=== PATIENT | female | born 1990 | race Caucasian/White ===

== ENCOUNTER 2018-05-02 17:48 | Outpatient (CLI) | payer MEDICAID ==
[2018-05-02] MEDS ORDERED: RINGERS SOLUTION,LACTATED 1,000 ML IV ONE (18:30)
[2018-05-02 18:40] LABS: ABSOLUTE EOSINOPHILS # (AUTO) 0.1 10^3/uL (0.0-0.6); ABSOLUTE LYMPHOCYTES (AUTO) 2.1 10^3/uL (0.5-4.7); ABSOLUTE MONOCYTES (AUTO) 0.7 10^3/uL (0.1-1.4); ABSOLUTE NEUT (AUTO) 9.9 10^3/uL (1.7-8.2); BASOPHILS % (AUTO) 0.2 % (0-2); EOSINOPHILS % (AUTO) 0.5 % (0-6); HEMOGLOBIN 11.7 g/dL (12.0-15.5); LYMPHOCYTES % (AUTO) 16.3 % (13-45); MEAN CORPUSCULAR HEMOGLOBIN 31.2 pg (27.0-33.4); MEAN CORPUSCULAR HGB CONC 34.5 g/dL (32.0-36.0); MEAN CORPUSCULAR VOLUME 90 fl (80-97); MONOCYTES % (AUTO) 5.5 % (3-13); PLATELET COUNT 191 10^3/uL (150-450); RED BLOOD COUNT 3.77 10^6/uL (3.72-5.28); RED CELL DISTRIBUTION WIDTH 13.1 % (11.5-14.0); SEGMENTED NEUTROPHILS % (AUTO) 77.5 % (42-78); TOTAL CELLS COUNTED % (AUTO) 100 %; WHITE BLOOD COUNT 12.7 10^3/uL (4.0-10.5)
[2018-05-02 19:34] LABS: RUBELLA INTERPRETATION POSITIVE
--- NOTE | 2018-05-02 20:42 | RADIOLOGY REPORT (SQ) ---
EXAM DESCRIPTION: U/S OB 14+ TRNABD 1GES W/O DOP COMPLETED DATE/TIME: 05/02/2018 8:08 pm REASON FOR STUDY: no care, complete OB US, anatomy COMPARISON: None. TECHNIQUE: Static and Dynamic grayscale imaging performed of gravid uterus using transabdominal appr oach. Additional selected color Doppler and spectral images recorded. Transvaginal images of cervic al length were obtained. All stored on PACS. LIMITATIONS: positioning and advanced age FINDINGS: EGA: 32 weeks 3 days BURKE: 06/24/2018 EFW: 1,973 grams PERCENTILE: Not calculated DANIELLA: 11.6 PLACENTA: Anterior. PRESENTATION: Cephalic. ANATOMY: HEART RATE: 137 beats per minute. FOUR CHAMBER HEART: Visualized. THREE VESSEL CORD: Yes. CORD INSERTION: Visualized. KIDNEYS AND BLADDER: Not visualized STOMACH: Visualized. Appears normal. SPINE: Not adequately visualized BRAIN AND LATERAL VENTRICLES: Not adequately visualized OTHER: No other significant finding. MATERNAL ADNEXA: Maternal ovaries not visualized. CERVICAL LENGTH: 3.5 cm Closed. OTHER: No other significant finding. IMPRESSION: LIVING INTRAUTERINE . ESTIMATED GESTATIONAL AGE 32 weeks 3 days which is discordant with patient's EGA by LMP of 20 weeks 2 days. Clinical correlation is required. Limited anatomic evaluation with no gross abnormality is visualized. Trimester of : Third trimester - 28 weeks to delivery. TECHNICAL DOCUMENTATION: JOB ID: [id number] [employer]- All Rights Reserved Reading location - IP/workstation name: [email or web address]
[2018-05-02 20:52] LABS: APPEARANCE,URINE SLIGHTLY-CLOUDY; BILIRUBIN,URINE NEGATIVE (NEGATIVE); COLOR,URINE COLORLESS; GLUCOSE, URINE NEGATIVE (NEGATIVE); KETONES,URINE NEGATIVE (NEGATIVE); LEUKOCYTE ESTERASE,URINE NEGATIVE (NEGATIVE); NITRITE,URINE NEGATIVE (NEGATIVE); PROTEIN,URINE NEGATIVE (NEGATIVE); URINE SPECIFIC GRAVITY 1.003; UROBILINOGEN,URINE NEGATIVE mg/dL (<2.0)
[2018-05-02 21:07] LABS: URINE AMPHETAMINES SCREEN NEGATIVE; URINE BARBITURATES SCREEN NEGATIVE; URINE BENZODIAZEPINES SCREEN NEGATIVE; URINE COCAINE SCREEN NEGATIVE; URINE METHADONE SCREEN NEGATIVE; URINE PHENCYCLIDINE SCREEN NEGATIVE
[2018-05-02 21:10] LABS: URINE MARIJUANA (THC) SCREEN UNCONFIRMED POSITIVE
--- NOTE | 2018-05-02 21:56 | Non Stress Test Report ---
Non Stress Test Datetime Report Generated by CPN: 05/02/2018 21:56 DEMOGRAPHIC Test Number: 1 EGA NST: 32.3 INDICATION Indication for Study: Ordered by Provider MONITORING Monitor Explained: Monitor Explained; Test Explained; Patient Verbalized Understanding Time on Monitor: 05/02/2018 20:12 Time off Monitor: 05/02/2018 21:02 NST Duration: 50 NST INTERVENTIONS NST Interventions: PO Hydration; IV Fluids; Reposition Patient Physician Notified NST: Dr. Pruitt BABY A: [id number] BABY A Movement : Present Contraction Frequency : occasional FHR Baseline : 135 Accelerations : 15X15 Decelerations : None Variability : Moderate 6-25bpm NST Review: Meets Criteria for Reactive NST NST Review and Verified By : HEDY Berman NST REPORT Report Trigger: Send Report
[2018-05-02 23:07] LABS: CHLAM PCR NOT DETECTED (NOT DETECT); GON PCR NOT DETECTED (NOT DETECT)
[2018-05-04 09:40] LABS: HEPATITIS C VIRUS AB <0.1 s/co ratio (0.0-0.9)
[2018-05-04 10:16] LABS: HEPATITS B SURFACE ANTIGEN Negative (Negative)
== END 2018-05-02 21:49 | disposition home or self-care (01) ==
LOC: LC 17:48
PROVIDERS: ATTEND Obstetrics & Gynecology Gynecology
PROC: 4A1HXCZ Monitoring of Products of Conception, Cardiac Rate, External Approach (ICD-10-PCS; principal; 2018-05-02)
DX: O47.03 False labor before 37 completed weeks of gestation, third trimester (principal); O09.33 Supervision of pregnancy with insufficient antenatal care, third trimester; Z3A.32 32 weeks gestation of pregnancy
CPT/HCPCS: 59025; 86900; 86901; 36415; 86850; 85025; 86762; 86592; 81001; 87081; 87340; 86701; 80307; 87491; 87591; 86803; 86804; 76805; G0480 ×2; 80349

== ENCOUNTER 2018-06-17 16:09 | Inpatient (IN) | payer MEDICAID ==
[~2018-06-17 16:09] MED LIST: DEXAMETHASONE SOD PHOSPHATE INJ 4 MG/1 ML VIAL ONE; METOCLOPRAMIDE HCL INJ/PF 10 MG/2 ML SDV ONE; ONDANSETRON HCL INJ/PF 4 MG/2 ML SDV ONE; PHENYLEPHRINE HCL INJ/PF 10 MG/1 ML SDV ONE
[2018-06-17] MEDS ORDERED: CEFAZOLIN 2 GM/D5W RTU 2 GM/50 ML RTUPB IV ONE ×2 (17:00→17:08)
[2018-06-17] MEDS ORDERED: RINGERS SOLUTION,LACTATED 1,000 ML IV PRN (17:00)
[2018-06-17 17:07] LABS: APPEARANCE,URINE CLEAR; BILIRUBIN,URINE NEGATIVE (NEGATIVE); COLOR,URINE AMBER; GLUCOSE, URINE NEGATIVE (NEGATIVE); KETONES,URINE NEGATIVE (NEGATIVE); LEUKOCYTE ESTERASE,URINE TRACE (NEGATIVE); NITRITE,URINE NEGATIVE (NEGATIVE); PROTEIN,URINE 30 mg/dL (NEGATIVE); URINE SPECIFIC GRAVITY 1.021
[2018-06-17] MEDS ORDERED: CITRIC ACID/SODIUM CITRATE ORAL SOLN 15 ML UDCUP ONE (17:07)
[2018-06-17 17:38] LABS: URINE AMPHETAMINES SCREEN NEGATIVE; URINE BARBITURATES SCREEN NEGATIVE; URINE BENZODIAZEPINES SCREEN NEGATIVE; URINE COCAINE SCREEN NEGATIVE; URINE METHADONE SCREEN NEGATIVE; URINE PHENCYCLIDINE SCREEN NEGATIVE
[2018-06-17 17:46] LABS: URINE MARIJUANA (THC) SCREEN UNCONFIRMED POSITIVE
--- NOTE | 2018-06-17 18:28 | Admission Physical ---
Datetime Report Generated by CPN: 06/17/2018 18:27 CURRENT ADMISSION Chief Complaint: Uterine Contractions; Suspected Ruptured Membranes Indication for Induction: Not Applicable Admit Impression : Term, Intrauterine ; Ruptured Membranes; Repeat Section Admit Impression- Other: meconium noted Admit Plan: Admit to Unit; Initiate Section Protocol ALLERGIES Medication Allergies: No Medication Allergies: No Known Drug Allergies (06/15/2018) Latex: No Latex Allergies OBSTETRICAL HISTORY EDC: 06/24/2018 00:00 : 4 Para: 2 Term: 2 : 0 SAB: 1 IAB: 0 Ectopic: 0 Livin Cesareans: 2 VBACs: 0 Multiple Births: 0 SEE RECORDS Alcohol: No Marijuana : Yes Marijuana Comments: pt states that she used it once Cocaine: No Other Illicit Drugs: No Cigarettes: Former Smoker. [id number] MEDICAL HISTORY Hosp/Surgery: Yes Medical History Comments: x2 gall bladder removal Left arm surgery PHYSICAL EXAM General: Normal HEENT: Normal Neurologic: Normal Thyroid: Normal Heart: Normal Lungs: Normal Breast: Normal Back: Normal Abdomen: Normal Genitourinary Exam: Normal Extremities: Normal DTRs: Normal Pelvic Type: Adequate Vital Signs: Reviewed; Within Normal Limits MEMBRANES Pooling: Positive Membranes: Ruptured Amniotic Fluid Color: Meconium, Light FETUS A EGA: 39.0 Monitoring: External US FHR- Baseline: 140 Variability: Minimal - Undetectable to <=5bpm Decelerations: Variable; Prolonged FHR Category: Category II Estimated Weight (gm): 3500 Presentation: Vertex Admit Comment: proceed with repeat c/section in light of questionable status on nst and evidence of ROM. PLANS FOR LABOR AND DELIVERY Feeding Preference: Breast Benefit of Breast Feed Discussed: Yes Circumcision: N/A INFORMED CONSENT Signature: with User ID: [email or web address]
[2018-06-17] MEDS ORDERED: DIPHENHYDRAMINE HCL 50 MG/ML VIAL IV PRN (18:55)
[2018-06-17] MEDS ORDERED: PROMETHAZINE HCL INJ 25 MG/1 ML VIAL IV PRN ×3 (18:55→21:10)
[2018-06-17] MEDS ORDERED: FENTANYL CITRATE INJ/PF 100 MCG/2 ML AMPUL IV PRN ×3 (18:55)
[2018-06-17] MEDS ORDERED: MEPERIDINE HCL/PF INJ 25 MG/1 ML DISP.SYRIN IV PRN (18:55)
[2018-06-17] MEDS ORDERED: ONDANSETRON HCL INJ/PF 4 MG/2 ML SDV IV PRN (18:55)
[2018-06-17] MEDS ORDERED: MORPHINE SULFATE 10 MG/ML INJ IV PRN (18:55)
[2018-06-17] MEDS ORDERED: ACETAMINOPHEN 1,000 MG/100 ML RTUPB IV ONE (19:27)
[2018-06-17] MEDS ORDERED: FENTANYL CITRATE INJ/PF 100 MCG/2 ML AMPUL ONE (19:44)
[2018-06-17] MEDS ORDERED: MORPHINE SULFATE 10 MG/ML INJ ONE (20:51)
[2018-06-17] MEDS ORDERED: ACETAMINOPHEN 325 MG TABLET PO PRN (21:10)
[2018-06-17] MEDS ORDERED: OXYTOCIN/NORMAL SALINE 20 UNIT/1,000 ML RTUINJ IV PRN (21:10)
[2018-06-17] MEDS ORDERED: DIPH/PERTUSS(ACELL)/TETANUS VAC/PF 0.5 ML SYR (>=10YO) IM PRN (21:10)
[2018-06-17] MEDS ORDERED: HYDROMORPHONE HCL INJ/PF 2 MG/ML AMPULE IV PRN (21:10)
[2018-06-17] MEDS ORDERED: SIMETHICONE 80 MG TAB.CHEW PO PRN (21:10)
[2018-06-17] MEDS ORDERED: MEASLES,MUMPS&RUBELLA VACC/PF 0.5 ML VIAL SUBCUT PRN (21:10)
[2018-06-17] MEDS ORDERED: OXYCODONE-ACETAMINOPHEN 5-325 MG TABLET PO PRN (21:10)
[2018-06-17] MEDS ORDERED: HYDROMORPHONE HCL INJ/PF 2 MG/ML AMPULE ONE (21:33)
--- NOTE | 2018-06-17 22:30 | OPERATIVE REPORT E ---
Operative Report NAME: JOHANN BREWER : 1990 AGE: 28Y DATE OF SURGERY: ROOM: LR200 PREOPERATIVE DIAGNOSES: 1. Intrauterine at 39 weeks and 0 days. 2. Previous section. 3. Undesired fertility. POSTOPERATIVE DIAGNOSES: 4. Intrauterine at 39 weeks and 0 days. 5. Previous section. 6. Undesired fertility. PROCEDURE: Low transverse hysterotomy section with [place] tubal ligation. SURGEON: TRACI FUENTES M.D. LENS CUTTER: Porsha*------*, student. ANESTHESIA: Jenny Silva M.D. with a spinal. FINDINGS: A female , cephalic presentation with scores of 9 and 9, with meconium. The infant was quite meconium stained in fact and it 2230 grams. A thin lower uterine segment window. COMPLICATIONS: None. ESTIMATED BLOOD LOSS: 700 mL. TISSUE REMOVED OR ALTERED: Bilateral fallopian tubes. PROCEDURE IN DETAIL: The patient was taken to the operating room, prepared and draped in a normal sterile fashion in the supine position with a leftward tilt. A transverse skin incision was made with a scalpel following the patient's previous scar. This was carried through to the underlying layer of fascia with a Bovie. The fascia was excised and extended laterally with the Bovie as well. The fascia was then dissected from the rectus muscles sharply with the Bovie and the rectus muscle was divided with good visualization of the bladder and the uterus, and the above findings were noted in regards to the uterine window. The bladder blade was inserted. The hysterotomy was nicked above the patient's previous hysterotomy scar with a scalpel and this was extended with surgeon finger fracture. The infant was then delivered atraumatically. The nose and mouth were suctioned with a suction bulb and the cord was clamped and cut, and the was handed off to awaiting software systems engineer. The cord blood was collected. The placenta was removed manually. The uterus was exteriorized and cleared of clots and debris. We examined the lower uterine segment itself, that at this time if we could obtain hemostasis with a 1 layer closure we would only to a 1 layer closure due to the thinness of the uterine segment and the concerns over bladder involvement. Therefore, the hysterotomy was closed with a single layer of Monocryl in a running lock stitch. Attention was then turned to the fallopian tubes, where both fallopian tubes were grasped with Babcocks and the mesosalpinx was divided. A large segment of each fallopian tube was tied off with 2 pieces of 2-0 chromic and the intermediate segment was then removed with Metzenbaums. The pedicles were made hemostatic with a Bovie. The hysterotomy was reinspected and again found to be hemostatic. The uterus was returned to the abdomen. The peritoneal cavity was cleared of clots and debris. The rectus muscle and peritoneum were reapproximated with a mattress stitch of 2-0 chromic. The fascia was closed with 0 Vicryl. The subcutaneous layer was closed with plain catgut. The skin was closed with 4-0 Vicryl. The patient tolerated the procedure well. Sponge, lap, and needle counts were correct x2, and the patient was taken to recovery in stable condition. DICTATING PHYSICIAN: TRACI FUENTES M.D. [id number] PHY#: [id number] ID: [id number] JOB#: [id number] ACCT: [id number] cc:TRACI FUENTES M.D. >
[2018-06-18] MEDS ORDERED: CEFAZOLIN 1 GM/D5W RTU 1 GM/50 ML RTUPB IV SCH
[2018-06-18] MEDS ORDERED: HYDROMORPHONE HCL INJ/PF 2 MG/ML AMPULE ONE (00:10)
[2018-06-18] MEDS: KETOROLAC TROMETHAMINE INJ/PF 30 MG/1 ML SDV IV SCH ×3 (00:24→14:45)
[2018-06-18] MEDS ORDERED: OXYCODONE-ACETAMINOPHEN 5-325 MG TABLET ONE ×2 (04:56→04:58)
[2018-06-18] MEDS ORDERED: KETOROLAC TROMETHAMINE INJ/PF 30 MG/1 ML SDV ONE (04:56)
[2018-06-18] MEDS: OXYCODONE-ACETAMINOPHEN 5-325 MG TABLET PO PRN ×3 (05:43→20:41)
[2018-06-18 06:23] LABS: HEMATOCRIT 33.2 % (36.0-47.0); HEMOGLOBIN 11.3 g/dL (12.0-15.5); MEAN CORPUSCULAR HEMOGLOBIN 30.9 pg (27.0-33.4); MEAN CORPUSCULAR VOLUME 91 fl (80-97); PLATELET COUNT 243 10^3/uL (150-450); RED BLOOD COUNT 3.66 10^6/uL (3.72-5.28); RED CELL DISTRIBUTION WIDTH 13.3 % (11.5-14.0); WHITE BLOOD COUNT 26.5 10^3/uL (4.0-10.5)
[2018-06-18] MEDS: IBUPROFEN 800 MG TABLET PO SCH ×4 (11:27→18:16)
[2018-06-18] MEDS: DOCUSATE SODIUM 100 MG CAPSULE PO SCH ×2 (11:32→18:16)
[2018-06-18] MEDS: PRENATAL VITAMIN W DHA CAPSULE PO SCH (11:34)
[2018-06-19] MEDS: IBUPROFEN 800 MG TABLET PO SCH ×3 (00:47→12:43)
[2018-06-19] MEDS: OXYCODONE-ACETAMINOPHEN 5-325 MG TABLET PO PRN ×2 (05:59→12:43)
[2018-06-19] MEDS: DOCUSATE SODIUM 100 MG CAPSULE PO SCH (09:16)
[2018-06-19] MEDS: PRENATAL VITAMIN W DHA CAPSULE PO SCH (09:16)
[2018-06-19] MEDS ORDERED: ONDANSETRON 4 MG TAB.RAPDIS PO PRN (10:09)
[2018-06-19 11:40] LABS: ABSOLUTE EOSINOPHILS # (AUTO) 0.3 10^3/uL (0.0-0.6); ABSOLUTE LYMPHOCYTES (AUTO) 2.5 10^3/uL (0.5-4.7); ABSOLUTE NEUT (AUTO) 8.5 10^3/uL (1.7-8.2); BASOPHILS % (AUTO) 0.3 % (0-2); EOSINOPHILS % (AUTO) 2.6 % (0-6); HEMATOCRIT 30.4 % (36.0-47.0); HEMOGLOBIN 10.2 g/dL (12.0-15.5); LYMPHOCYTES % (AUTO) 20.1 % (13-45); MEAN CORPUSCULAR HGB CONC 33.7 g/dL (32.0-36.0); MEAN CORPUSCULAR VOLUME 92 fl (80-97); PLATELET COUNT 229 10^3/uL (150-450); RED CELL DISTRIBUTION WIDTH 13.1 % (11.5-14.0); TOTAL CELLS COUNTED % (AUTO) 100 %; WHITE BLOOD COUNT 12.4 10^3/uL (4.0-10.5)
--- NOTE | 2018-06-19 12:15 | PDOC DISCHARGE SUMMARY ---
Final Diagnosis Discharge Date: 06/19/18 - Final Diagnosis (1) delivery delivered Is this a current diagnosis for this admission?: Yes Discharge Data - Discharge Medication Prescriptions: Ibuprofen [Motrin 800 mg Tablet] 800 mg PO Q8HP PRN #60 tablet PRN Reason: Oxycodone HCl/Acetaminophen [Percocet 5-325 mg Tablet] 1 tab PO Q4HP PRN #30 tablet PRN Reason: Home Medications: Vits96/Iron Fum/Folic [ Tablet] 1 tab PO DAILY 08/21/15 Ibuprofen [Motrin 800 mg Tablet] 800 mg PO Q8HP PRN #60 tablet 06/19/18 Oxycodone HCl/Acetaminophen [Percocet 5-325 mg Tablet] 1 tab PO Q4HP PRN #30 tablet 06/19/18 Procedures: NST Intrapartum Procedure(s): : Low Cervical, Transverse - Diagnosis Test Laboratory: Temp Pulse Resp BP Pulse Ox 98.1 F 80 16 109/61 99 06/19/18 08:25 06/19/18 08:25 06/19/18 08:25 06/19/18 08:25 06/19/18 08:25 06/17/18 06/18/18 06/19/18 16:24 05:51 11:07 RBC 3.66 L 3.30 L Hgb 11.3 L 10.2 L Hct 33.2 L 30.4 L Urine Opiates Screen NEGATIVE - Discharge information/Instructions Discharge Activity: Balance Activity w/Rest, No Lifting/Push/Pulling, Pelvic Rest, No tub bath Discharge Diet: Regular Disposition: HOME, SELF-CARE Follow up with: [facility] in: 1, Weeks
[2018-06-19 12:26] VITALS: BP 112/63
--- NOTE | 2018-06-28 10:52 | Delivery Summary ---
Del Sum A-C Datetime Report Generated by CPN: 06/28/2018 10:52 DELIVERY PERSONNEL DELIVERY PERSONNEL: [id number] Delivery Doctor:: Sharonda Hallman MD Anesthesiologist:: Jenny Silva MD WATER POLLUTION SPECIALIST:: Dana Neumann WATER POLLUTION SPECIALIST Labor and Delivery Nurse:: Alicia Braun RN Scene Shifter:: Eileen Singh RN Contact Lens Inspector/ORGAN TUNER ELECTRONIC: ST Ferdinand Contact Lens Inspector/ORGAN TUNER ELECTRONIC: Josy Cruz, POLICE SURGEON MATERNAL INFORMATION Delivery Anesthesia: Spinal Medications After Delivery: Pitocin Drip 20 Units/1000ml NSS Maternal Complications: None LABOR SUMMARY EDC: 06/24/2018 00:00 No. Babies in Womb: 1 Attempted: No Labor Anesthesia: None LABOR INFORMATION Reason for Induction: Not Applicable Oxytocin: N/A Group B Beta Strep: 1 NO GROUP B STREPTOCOCCUS RECOVERED Antibiotics # of Doses: N/A Antibiotics Time of Last Dose: N/A Name of Antibiotic Given: N/A Steroids Given: None Reason Steroids Not Administered: Not Applicable MEMBRANES Membranes Rupture Method: Spontaneous Rupture of Membranes: 06/17/2018 07:30 Length of Rupture (hr): 11.08 Amniotic Fluid Color: Light Meconium Amniotic Fluid Amount: Small Amniotic Fluid Odor: Normal STAGES OF LABOR Stage 3 hr: 0 Stage 3 min: 1 VAGINAL DELIVERY Episiotomy: None Laceration #1: None Laceration Extension #1: N/A Laceration Repair: Not Applicable Sponge Count Correct: N/A Sharps Count Correct: N/A CSECTION DELIVERY Primary Indication: Nonreassuring Status Other Primary Indication: SROM Secondary Indication: Repeat Elective CSection Urgency: Non-Scheduled CSection Incidence: Repeat Labor: N/A Elective: Nonelective CSection Incision: Lower Uterine Transverse Sterilization Procedure: [place] BABY A INFORMATION Infant Delivery Date/Time: 06/17/2018 18:35 Method of Delivery: Born in Route : No : N/A Forceps: N/A Vacuum Extraction: N/A Shoulder Dystocia : No PRESENTATION/POSITION BABY A Presentation: Cephalic Cephalic Presentation: Vertex Breech Presentation: N/A PLACENTA INFORMATION BABY A Placenta Delivery Time : 06/17/2018 18:36 Placenta Method of Delivery: Manual Removal Placenta Status: Delivered SCORES BABY A Heart Rate 1 min: >100 bpm Resp Effort 1 min: Good Cry Reflex Irritability 1 min: Cough or Sneeze or Pulls Away Muscle Tone 1 min: Active Motion Color 1 min: Body [place], Extremities Blue Resuscitation Effort 1 min: Tactile Stimulation SCORE 1 MIN: 9 Heart Rate 5 min: >100 bpm Resp Effort 5 min: Good Cry Reflex Irritability 5 min: Cough or Sneeze or Pulls Away Muscle Tone 5 min: Active Motion Color 5 min: Body [place], Extremities Blue SCORE 5 MIN: 9 INFANT INFORMATION BABY A Gestational Age at Delivery: 39.0 Gestational Status: Full Term- 39- 40.6 Weeks Outcome : Liveborn Condition : Stable Sex: Female IDENTIFICATION BABY A Infant Verification Date/Time: 06/17/2018 18:35 ID Band Number: [id number] Mother's Name Verified: Yes RN Verifying Infant: A. Brielle RN Additional Verifying Personnel: Sabas Chacon RN WEIGHT/LENGTH BABY A Birthweight (gm): 2230 Infant Weight (lb): 4 Infant Weight (oz): 15 Length (in): 18.50 Infant Length (cm): 46.99 CORD INFORMATION BABY A No. Cord Vessels: 3 Nuchal Cord : N/A Cord Blood Taken: Yes-For Storage (Mom's Blood type +) ASSESSMENT BABY A Skin to Skin: No Cardiac Rehab Nurse/ALS Called : Yes Care By: A. Oswaldo RN Transferred To: [facility] BABY B INFORMATION : N/A
== END 2018-06-19 14:10 | disposition home or self-care (01) | DRG 766 ==
LOC: LC 16:09 → LR 17:13 → 2S 06-18 09:09
PROVIDERS: ADMIT Obstetrics & Gynecology; ATTEND Obstetrics & Gynecology
PROC: 10D00Z1 Extraction of Products of Conception, Low, Open Approach (ICD-10-PCS; principal; 2018-06-17)
PROC: 0UB70ZZ Excision of Bilateral Fallopian Tubes, Open Approach (ICD-10-PCS; 2018-06-17)
PROC: 4A1HXCZ Monitoring of Products of Conception, Cardiac Rate, External Approach (ICD-10-PCS; 2018-06-17)
DX: O76 Abnormality in fetal heart rate and rhythm complicating labor and delivery (principal); O34.211 Maternal care for low transverse scar from previous cesarean delivery; O77.0 Labor and delivery complicated by meconium in amniotic fluid; Z30.2 Encounter for sterilization; Z3A.39 39 weeks gestation of pregnancy; Z37.0 Single live birth
CPT/HCPCS: 1961; 36415; 80307; 80349; 81001; 81005; 85025; 85027; 86850; 86900; 86901; 88302; 88307; 90715; 94799; G0480; J0131; J0690; J1100; J1170; J1885; J2250; J2270; J2370; J2405; J2550; J2590; J2765; J3010; J3490

== ENCOUNTER 2019-01-22 12:20 | Emergency (ER) | payer MEDICAID ==
[2019-01-22 12:32] VITALS: BP 122/38
[2019-01-22] MEDS ORDERED: IBUPROFEN 600 MG TABLET PO ONE (12:48)
--- NOTE | 2019-01-22 12:53 | ER Document Report ---
ED Neck/Back Problem - General Chief Complaint: Back Pain Stated Complaint: BACK PAIN Time Seen by Provider: 01/22/19 12:41 Mode of Arrival: Ambulatory Information source: Patient TRAVEL OUTSIDE OF THE [place] IN LAST 30 DAYS: No - HPI Patient complains to provider of: Pain, Upper back Onset: Yesterday Notes: Patient is here with complaints of right upper back pain. The patient states that she was moving a table yesterday and felt a pop in her back. Around midnight she started having some increasing pain to the right upper back. Pain is worse with movements. She denies any chest pain or shortness of breath. There is no traumatic injury. She denies any recent long trips or surgeries, leg pain or leg swelling, cancer, history of DVT or PE, hormone use. She denies any abdominal pain. She denies any dysuria or hematuria. No nausea, vomiting, diarrhea. No rash. She denies blood thinning medications. She denies bowel or bladder dysfunction, no numbness, tingling, weakness. Pain is constant, worse with specific movements, better with rest. She has taken no medications for this today. She also complains of a mild right-sided headache. This started earlier this morning. It was not a sudden onset, thunderclap type headache. No blurred or loss vision. No numbness, tingling, weakness. No neck stiffness. No fever. No rash. It was not sudden onset in nature. Nothing makes the headache better or worse. No photophobia. No other complaints at this time. - Related Data Allergies/Adverse Reactions: No Known Drug Allergies Allergy (Verified 01/22/19 12:22) Past Medical History - Social History Smoking Status: Current Some Day Smoker Frequency of alcohol use: Occasional Drug Abuse: Marijuana Family History: Reviewed & Not Pertinent Patient has suicidal ideation: No Patient has homicidal ideation: No - Past Medical History Cardiac Medical History: Denies: Hx Coronary Artery Disease, Hx Heart Attack, Hx Hypertension Pulmonary Medical History: Denies: Hx Asthma, Hx Bronchitis, Hx COPD, Hx Pneumonia Neurological Medical History: Denies: Hx Cerebrovascular Accident, Hx Seizures Endocrine Medical History: Denies: Hx Diabetes Mellitus Type 1 Renal/ Medical History: Denies: Hx Ovarian Cysts, Hx Peritoneal Dialysis, Hx Pelvic Inflammatory Disease Malignancy Medical History: Denies: Hx Breast Cancer, Hx Cervical Cancer, Hx Ovarian Cancer GI Medical History: Denies: Hx Gastroesophageal Reflux Disease, Hx Hiatal Hernia, Hx Ulcer Musculoskeletal Medical History: Denies Hx Arthritis, Denies Hx Fibromyalgia Psychiatric Medical History: Reports: Hx Anxiety, Hx Depression Denies: Hx Bipolar Disorder, Hx Post Traumatic Stress Disorder, Hx Schizophrenia Traumatic Medical History: Reports: Hx Fractures - left arm 2009 Past Surgical History: Reports: Hx Section - x3, Hx Cholecystectomy, Hx Orthopedic Surgery - rods inserted then removed from arm. Denies: Hx Hysterectomy, Hx Pacemaker - Immunizations Hx Diphtheria, Pertussis, Tetanus Vaccination: No - unsure Review of Systems - Review of Systems -: Yes All other systems reviewed and negative Physical Exam - Vital signs Vitals: Temp Pulse Resp BP Pulse Ox 97.5 F 61 18 122/38 L 100 01/22/19 12:01/22/19 12:01/22/19 12:01/22/19 12:01/22/19 12:31 - Notes Notes: GENERAL: alert, cooperative, nontoxic, no distress. HEAD: normocephalic, atraumatic EYES: conjunctiva pink without discharge, no external redness or swelling. EARS: no external swelling, no external redness NOSE: atraumatic, no external swelling MOUTH/THROAT: mucous membranes moist and pink, posterior pharynx without erythema, swelling, exudate. No trismus or drooling. NECK: soft, supple, full range of motion, no meningismus. CHEST: no distress, lungs clear and equal throughout. No wheezing, rales, rhonchi. CARDIAC: regular rate and rhythm, no murmur, normal capillary refill, normal pulses. No peripheral edema noted. ABDOMEN: soft, nontender, no pusatile mass. BACK: No CVA tenderness. Tenderness to palpation to the right thoracic paraspinal muscles. No midline tenderness, step-offs or crepitus. No mass. Full range of motion. No CVA tenderness. EXTREMITIES: full range of motion of all extremities. No redness, no swelling. NEURO: alert and oriented A&O x 3, no focal deficits, full range of motion of all extremities. 5 out of 5 flexion and extension of the lower extremities bilaterally. Patellar and Achilles deep tendon reflexes are +2 bilaterally. Normal sensation with no saddle anesthesia. Patient can dorsiflex the great toe s bilaterally. Cranial nerves II through XII are grossly intact. PYSCH: appropriate mood, affect. Patient is cooperative. SKIN: pink, warm, dry, no rash. Course - Re-evaluation Re-evalutation: 01/22/19 12:51 Patient is nontoxic-appearing with stable vitals. She is here with complaints of right upper back pain after moving a table yesterday. She has some reproducible tenderness to the thoracic paraspinal muscles. She has full range of motion. There is no rash. No CVA tenderness. She has no sign or risk of cauda equina, epidural abscess/bleed, discitis, osteomyelitis, pyelonephritis, AAA. She also complained of a mild right-sided headache. No head injury. She is on a blood thinning medications. She has no signs of subarachnoid hemorrhage, or meningitis. Patient will be given a dose of ibuprofen here in the emergency department. She has a nonfocal neurological exam. She will be discharged home with Naprosyn and Zanaflex. Instructions to follow-up if not better in the next 5-7 days, sooner for worsening symptoms, high fever, abdominal pain, persistent vomiting, difficulty controlling bowels or bladder, or for any further concerns. The patient's emergency department workup and current diagnosis were explained to the patient and or family. Follow-up instructions were provided. Medications if prescribed were discussed. Instructions for when to return to the emergency department including specific worrisome symptoms were discussed with the patient and/or family. - Vital Signs Vital signs: Temp Pulse Resp BP Pulse Ox 97.5 F 61 18 122/38 L 100 01/22/19 12:31 01/22/19 12:31 01/22/19 12:31 01/22/19 12:31 01/22/19 12:31 Discharge - Discharge Clinical Impression: Thoracic myofascial strain Qualifiers: Encounter type: initial encounter Qualified Code(s): S29.019A - Strain of muscle and tendon of unspecified wall of thorax, initial encounter Headache Qualifiers: Headache type: unspecified Headache chronicity pattern: acute headache Intractability: not intractable Qualified Code(s): R51 - Headache Condition: Stable Disposition: HOME, SELF-CARE Instructions: Muscle Strain ([facility]), Headache ([facility]) Additional Instructions: Take medications as prescribed. Follow-up if not better in the next 5-7 days, sooner for worsening pain, fever, numbness, tingling, weakness, bowel or bladder dysfunction, chest pain or shortness of breath, or for any further concerns. Prescriptions: Naproxen [Naprosyn] 500 mg PO BID #20 tablet Tizanidine HCl [Zanaflex 4 Mg Tablet] 4 mg PO BID PRN #10 tablet PRN Reason: Forms: Smoking Cessation Education Referrals: [facility] [Provider Group] - Follow up as needed
== END 2019-01-22 12:56 | disposition home or self-care (01) ==
LOC: ER 12:20
DX: S29.012A Strain of muscle and tendon of back wall of thorax, initial encounter (principal); X58.XXXA Exposure to other specified factors, initial encounter; R51 Headache; Z79.01 Long term (current) use of anticoagulants
CPT/HCPCS: 99283; J3490

== ENCOUNTER 2019-11-09 15:04 | Emergency (ER) | payer MEDICAID ==
[2019-11-09] MEDS ORDERED: IBUPROFEN 800 MG TABLET PO ONE (15:47)
--- NOTE | 2019-11-09 15:49 | ER Document Report ---
ED Medical Screen (RME) - General Chief Complaint: Flank Pain Stated Complaint: FLANK PAIN Time Seen by Provider: 11/09/19 15:45 Primary Care Provider: EMILY APARICIO MD [Primary Care Provider] - Follow up as needed Mode of Arrival: Ambulatory Information source: Patient Notes: 29-year-old female presents with right-sided flank pain and pain with void that started this morning around 1030. She reports the last 2 hours with excruciating pain. She reports she did not take anything for pain because she does not have anything. Denies history of kidney stones. No other complaints such as fever vomiting diarrhea. Patient looks uncomfortable. Right flank tender to palpate I have greeted and performed a rapid initial assessment of this patient. A comprehensive ED assessment and evaluation of the patient, analysis of test results and completion of the medical decision making process will be conducted by additional ED providers. TRAVEL OUTSIDE OF THE [place] IN LAST 30 DAYS: No - Related Data Allergies/Adverse Reactions: No Known Drug Allergies Allergy (Verified 11/09/19 15:41) Past Medical History - Social History Chew tobacco use (# tins/day): No Frequency of alcohol use: None Drug Abuse: None - Past Medical History Cardiac Medical History: Denies: Hx Coronary Artery Disease, Hx Heart Attack, Hx Hypertension Pulmonary Medical History: Denies: Hx Asthma, Hx Bronchitis, Hx COPD, Hx Pneumonia Neurological Medical History: Denies: Hx Cerebrovascular Accident, Hx Seizures Endocrine Medical History: Denies: Hx Diabetes Mellitus Type 1 Renal/ Medical History: Denies: Hx Ovarian Cysts, Hx Peritoneal Dialysis, Hx Pelvic Inflammatory Disease Malignancy Medical History: Denies: Hx Breast Cancer, Hx Cervical Cancer, Hx Ovarian Cancer GI Medical History: Denies: Hx Gastroesophageal Reflux Disease, Hx Hiatal Hernia, Hx Ulcer Musculoskeltal Medical History: Denies Hx Arthritis, Denies Hx Fibromyalgia Psychiatric Medical History: Reports: Hx Anxiety, Hx Attention Deficit Hyperactivity Disorder, Hx Depression Denies: Hx Bipolar Disorder, Hx Post Traumatic Stress Disorder, Hx Schizophrenia Traumatic Medical History: Reports: Hx Fractures - left arm 2008 Past Surgical History: Reports: Hx Section - x3, Hx Cholecystectomy, Hx Orthopedic Surgery - rods inserted then removed from arm. Denies: Hx Hysterectomy, Hx Pacemaker - Immunizations Hx Diphtheria, Pertussis, Tetanus Vaccination: No - unsure Physical Exam - Vital signs Vitals: Temp Pulse Resp BP Pulse Ox 98.1 F 81 18 137/79 H 98 11/09/19 15:08 11/09/19 15:08 11/09/19 15:08 11/09/19 15:08 11/09/19 15:08 Course - Vital Signs Vital signs: Temp Pulse Resp BP Pulse Ox 98.1 F 81 18 137/79 H 98 11/09/19 15:08 11/09/19 15:08 11/09/19 15:08 11/09/19 15:08 11/09/19 15:08 Doctor's Discharge - Discharge Referrals: EMILY APARICIO MD [Primary Care Provider] - Follow up as needed
[2019-11-09 16:28] LABS: HEMATOCRIT 46.5 % (36.0-47.0); HEMOGLOBIN 15.7 g/dL (12.0-15.5); MEAN CORPUSCULAR HEMOGLOBIN 30.8 pg (27.0-33.4); MEAN CORPUSCULAR HGB CONC 33.9 g/dL (32.0-36.0); MEAN CORPUSCULAR VOLUME 91 fl (80-97); PLATELET COUNT 261 10^3/uL (150-450); RED BLOOD COUNT 5.12 10^6/uL (3.72-5.28); RED CELL DISTRIBUTION WIDTH 13.3 % (11.5-14.0); WHITE BLOOD COUNT 17.4 10^3/uL (4.0-10.5)
[2019-11-09 16:31] LABS: APPEARANCE,URINE TURBID; BILIRUBIN,URINE NEGATIVE (NEGATIVE); GLUCOSE, URINE NEGATIVE (NEGATIVE); KETONES,URINE 20 mg/dL (NEGATIVE); LEUKOCYTE ESTERASE,URINE SMALL (NEGATIVE); NITRITE,URINE NEGATIVE (NEGATIVE); PROTEIN,URINE 100 mg/dL (NEGATIVE); URINE SPECIFIC GRAVITY 1.029; UROBILINOGEN,URINE NEGATIVE mg/dL (<2.0)
[2019-11-09 16:32] LABS: COLOR,URINE YELLOW
[2019-11-09 16:35] LABS: ALBUMIN 5.2 g/dL (3.5-5.0); ALKALINE PHOSPHATASE 62 U/L (38-126); ANION GAP 16 (5-19); ASPARTATE AMINO TRANSFERASE 23 U/L (14-36); BILIRUBIN,DIRECT 0.2 mg/dL (0.0-0.4); BILIRUBIN,TOTAL 0.8 mg/dL (0.2-1.3); BLOOD UREA NITROGEN 15 mg/dL (7-20); CALCIUM 10.5 mg/dL (8.4-10.2); CARBON DIOXIDE 26 mmol/L (22-30); CHLORIDE 99 mmol/L (98-107); GLUCOSE 141 mg/dL (75-110); POTASSIUM 4.4 mmol/L (3.6-5.0)
--- NOTE | 2019-11-09 16:38 | RADIOLOGY REPORT (SQ) ---
EXAM DESCRIPTION: U/S RETROPERITON (RENAL/AORTA) COMPLETED DATE/TIME: 11/09/2019 4:23 pm REASON FOR STUDY: right flank pain COMPARISON: None. TECHNIQUE: Dynamic and static grayscale images acquired of the kidneys and bladder and recorded on P ACS. Additional selected color Doppler and spectral images recorded. LIMITATIONS: None. FINDINGS: RIGHT KIDNEY: Normal size. Normal echogenicity. No solid or suspicious masses. Mild hydro nephrosis. No calcifications. LEFT KIDNEY: Normal size. Normal echogenicity. No solid or suspicious masses. No hydronephrosis. No calcifications. BLADDER: Not adequately visualized. OTHER FINDINGS: No other significant finding. IMPRESSION: MILD HYDRONEPHROSIS OF THE RIGHT KIDNEY. TECHNICAL DOCUMENTATION: JOB ID: [id number] [employer]- All Rights Reserved Reading location - IP/workstation name: [email or web address]
[2019-11-09 16:53] LABS: ABSOLUTE LYMPHOCYTES# (MANUAL) 1.2 10^3/uL (0.5-4.7); BASOPHILS % (MANUAL) 0 % (0-2); EOSINOPHILS % (MANUAL) 0 % (0-6); LYMPHOCYTES % (MANUAL) 7 % (13-45); MONOCYTES % (MANUAL) 6 % (3-13); SEGMENTED NEUTROPHILS % (MAN) 87 % (42-78); TOTAL CELLS COUNTED 100
[2019-11-09 16:54] LABS: PLATELET COMMENT ADEQUATE
[2019-11-09] MEDS ORDERED: ONDANSETRON 4 MG TAB.RAPDIS PO ONE (17:05)
[2019-11-09] MEDS ORDERED: MORPHINE SULFATE 10 MG/ML INJ IV ONE (18:19)
[2019-11-09] MEDS ORDERED: KETOROLAC TROMETHAMINE INJ/PF 30 MG/1 ML SDV IV ONE (18:19)
[2019-11-09] MEDS ORDERED: TAMSULOSIN HCL 0.4 MG CAP.SR.24H PO ONE (18:19)
[2019-11-09] MEDS ORDERED: ONDANSETRON HCL INJ/PF 4 MG/2 ML SDV IV ONE (18:19)
--- NOTE | 2019-11-09 18:22 | ER Document Report ---
ED General - General Chief Complaint: Flank Pain Stated Complaint: FLANK PAIN Time Seen by Provider: 11/09/19 15:45 Primary Care Provider: EMILY APARICIO MD [Primary Care Provider] - Follow up as needed Mode of Arrival: Ambulatory TRAVEL OUTSIDE OF THE [place] IN LAST 30 DAYS: No - HPI Notes: Patient is a 29-year-old female with no significant medical history presents to the emergency department for evaluation of right-sided flank pain. It started about 1030 this morning. She states is been constant, progressively worse. She has had nausea with multiple episodes of nonbloody, nonbilious emesis. No luz elena hematuria, dysuria, urinary frequency. No fevers or chills. Prior to 1030 this morning she was feeling well, no complaints. - Related Data Allergies/Adverse Reactions: No Known Drug Allergies Allergy (Verified 11/09/19 15:41) Past Medical History - General Information source: Patient - Social History Smoking Status: Never Smoker Chew tobacco use (# tins/day): No Frequency of alcohol use: None Drug Abuse: None Family History: Reviewed & Not Pertinent Patient has suicidal ideation: No Patient has homicidal ideation: No - Past Medical History Cardiac Medical History: Denies: Hx Coronary Artery Disease, Hx Heart Attack, Hx Hypertension Pulmonary Medical History: Denies: Hx Asthma, Hx Bronchitis, Hx COPD, Hx Pneumonia Neurological Medical History: Denies: Hx Cerebrovascular Accident, Hx Seizures Endocrine Medical History: Denies: Hx Diabetes Mellitus Type 1 Renal/ Medical History: Denies: Hx Ovarian Cysts, Hx Peritoneal Dialysis, Hx Pelvic Inflammatory Disease Malignancy Medical History: Denies: Hx Breast Cancer, Hx Cervical Cancer, Hx Ovarian Cancer GI Medical History: Denies: Hx Gastroesophageal Reflux Disease, Hx Hiatal Hernia, Hx Ulcer Musculoskeletal Medical History: Denies Hx Arthritis, Denies Hx Fibromyalgia Psychiatric Medical History: Reports: Hx Anxiety, Hx Attention Deficit Hyperactivity Disorder, Hx Depression Denies: Hx Bipolar Disorder, Hx Post Traumatic Stress Disorder, Hx Schizophrenia Traumatic Medical History: Reports: Hx Fractures - left arm 2008 Past Surgical History: Reports: Hx Section - x3, Hx Cholecystectomy, Hx Orthopedic Surgery - rods inserted then removed from arm. Denies: Hx Hyster ectomy, Hx Pacemaker - Immunizations Hx Diphtheria, Pertussis, Tetanus Vaccination: No - unsure Review of Systems - Review of Systems Constitutional: No symptoms reported EENT: No symptoms reported Cardiovascular: No symptoms reported Respiratory: No symptoms reported Gastrointestinal: See HPI Genitourinary: See HPI Female Genitourinary: No symptoms reported Musculoskeletal: No symptoms reported Skin: No symptoms reported Neurological/Psychological: No symptoms reported Physical Exam - Vital signs Vitals: Temp Pulse Resp BP Pulse Ox 98.1 F 81 18 137/79 H 98 11/09/19 15:08 11/09/19 15:08 11/09/19 15:08 11/09/19 15:11/09/19 15:08 - Notes Notes: This is a 29-year-old female who appears her stated age in a moderate amount of distress. She is uncomfortable and mildly tachypneic. Vital signs reviewed, please refer to chart. Head is normocephalic, atraumatic. Pupils equal round, reactive to light. Neck is supple without meningismus. Heart is regular rate and rhythm. Lungs are clear to auscultation bilaterally. Abdomen is soft, mildly tender in the right upper and lower quadrants without rebound or guarding, normoactive bowel sounds throughout. Positive CVA tenderness on the right. Extremities without cyanosis, clubbing. Posterior calves are nontender. Peripheral pulses are equal. Skin is warm and dry. Patient is awake, alert, neurological exam is nonfocal. Course - Re-evaluation Re-evalutation: 11/09/19 18:22 Patient presents emergency department for evaluation. Laboratory investigations were obtained through triage, as was ultrasound. Ultrasound revealed a hydronephrosis. I do suspect ureteral stone in this patient. She was sent for CT. IV was established, she was given medications to help with symptom, as well as Flomax to help with stone passage. We will continue to monitor. 11/09/19 19:46 Patient states that her pain is gone at this time. I will send her home with Flomax, Pelican, Zofran, Naprosyn. She is to follow-up with primary care/urology this week. She is to return to the ED with worsening. - Vital Signs Vital signs: Temp Pulse Resp BP Pulse Ox 98.1 F 81 18 137/79 H 98 11/09/19 15:08 11/09/19 15:08 11/09/19 15:08 11/09/19 15:08 11/09/19 15:08 - Laboratory Result Diagrams: 11/09/19 16:00 11/09/19 16:00 Laboratory results interpreted by me: 11/09/19 11/09/19 11/09/19 16:00 16:00 16:00 WBC 17.4 H Hgb 15.7 H Seg Neuts % (Manual) 87 H Lymphocytes % (Manual) 7 L Abs Neuts (Manual) 15.1 H Glucose 141 H Calcium 10.5 H Total Protein 9.0 H Albumin 5.2 H Urine Protein 100 H Urine Ketones 20 H Urine Blood LARGE H Ur Leukocyte Esterase SMALL H - Diagnostic Test Radiology reviewed: Reports reviewed Radiology results interpreted by me: 11/09/19 19:47 Renal Ultrasound 11/09/19 15:47 IMPRESSION: MILD HYDRONEPHROSIS OF THE RIGHT KIDNEY. Abdomen/Pelvis CT 11/09/19 18:23 IMPRESSION: Obstructing 6 mm ureterolith at the right ureterovesical junction. Mild to moderate right hydronephrosis/hydroureter. Discharge - Discharge Clinical Impression: Right ureteral stone Condition: Stable Disposition: HOME, SELF-CARE Instructions: Kidney Stone ([facility]) Additional Instructions: Rest, stay well-hydrated. Take medications as prescribed. Watch for dizziness, drowsiness, constipation with the Pelican. Follow-up with urology if symptoms persist. Follow-up with primary care this week. Return to the emergency department with worsening or new concerning symptoms of any sort. [email or web address] [facility] COUNT INCLUDES THE [facility] [email or web address] [address] Referrals: EMILY APARICIO MD [Primary Care Provider] - Follow up as needed
--- NOTE | 2019-11-09 19:22 | RADIOLOGY REPORT (SQ) ---
EXAM DESCRIPTION: CT ABD/PELVIS NO ORAL OR IV COMPLETED DATE/TIME: 11/09/2019 7:03 pm REASON FOR STUDY: right flank pain, eval for stone COMPARISON: None. TECHNIQUE: CT scan of the abdomen and pelvis performed without intravenous or oral contrast. Images reviewed with lung, soft tissue, and bone windows. Reconstructed coronal and sagittal MPR images revi ewed. All images stored on PACS. All CT scanners at this facility use dose modulation, iterative reconstruction, and/or weight based d osing when appropriate to reduce radiation dose to as low as reasonably achievable (ALARA). [facility]: Dose Right [facility]: CareDose [facility]: Dose Right [facility]: Teradose 4D [facility]: Smart Think Upgrade RADIATION DOSE: CT Rad equipment meets quality standard of care and radiation dose reduction techniq ues were employed. CTDIvol: 5.9 mGy. DLP: 290 mGy-cm.mGy. LIMITATIONS: None. FINDINGS: LOWER CHEST: No significant findings. No nodules or infiltrates. NON-CONTRASTED LIVER, SPLEEN, ADRENALS: Evaluation limited by lack of IV contrast. No identified sign ificant masses. PANCREAS: No masses. No peripancreatic inflammatory changes. GALLBLADDER: Surgically absent. RIGHT KIDNEY AND URETER: No suspicious masses. Assessment limited by lack of IV contrast. 6 mm roun d calcification within the distal right ureter at the ureterovesical junction. Mild to moderate ups tream dilation of the right ureter and renal pelvis. LEFT KIDNEY AND URETER: No suspicious masses. Assessment limited by lack of IV contrast. No signifi cant calcifications. No hydronephrosis or hydroureter. AORTA AND RETROPERITONEUM: No aneurysm. No retroperitoneal masses or adenopathy. BOWEL AND PERITONEAL CAVITY: No obvious masses or inflammatory changes. No free fluid. APPENDIX: Normal. PELVIS, BLADDER, AND ABDOMINAL WALL:No abnormal masses. No free fluid. Bladder normal. BONES: No significant findings. OTHER: No other significant finding. IMPRESSION: Obstructing 6 mm ureterolith at the right ureterovesical junction. Mild to moderate rig ht hydronephrosis/hydroureter. COMMENT: Quality ID # [id number]: Final reports with documentation of one or more dose reduction techniques (e.g., Automated exposure control, adjustment of the mA and/or kV according to patient size, use of iterative reconstruction technique) TECHNICAL DOCUMENTATION: JOB ID: [id number] [employer]- All Rights Reserved Reading location - IP/workstation name: [email or web address]
[2019-11-09] MEDS ORDERED: HYDROCODONE/ACETAMINOPHEN 5-325 MG (6 TAB/ER DISP) PO PRN (19:47)
[2019-11-09 20:32] VITALS: BP 107/60
== END 2019-11-09 20:32 | disposition home or self-care (01) ==
LOC: ER 15:04
DX: N13.2 Hydronephrosis with renal and ureteral calculous obstruction (principal); R11.2 Nausea with vomiting, unspecified; R10.9 Unspecified abdominal pain; R06.82 Tachypnea, not elsewhere classified; R10.811 Right upper quadrant abdominal tenderness; R10.813 Right lower quadrant abdominal tenderness
CPT/HCPCS: 99284; 96374; 96375; 36415; 85025; 81025; 80053; 81001; 76770; 74176; J3490 ×2; S0119; J1885; J2270; J2405